=== PATIENT | male | born 1985 | race Caucasian/White ===

== ENCOUNTER 2016-12-24 13:53 | Emergency (ER) | payer SELFPAY | END 2016-12-24 16:16 | disposition left against medical advice (07) | LOC: UCEAST 13:53 | DX: R21 Rash and other nonspecific skin eruption (principal); Z53.21 Procedure and treatment not carried out due to patient leaving prior to being seen by health care provider ==

== ENCOUNTER 2017-01-13 04:14 | Emergency (ER) | payer OTHER ==
[2017-01-13 04:26] VITALS: BP 129/70
--- NOTE | 2017-01-13 06:14 | ED ---
Jl Gagnon Michael, scribed for Robb Montes MD on 01/13/17 at 0451 . Medical Screening - HPI Summary HPI Summary: Pt is at the ED for a legal blood draw. - History of Current Complaint Chief Complaint: EDGeneral Stated Complaint: LEGAL BLOOD DRAW Associated Signs and Symptoms: Negative PMH/Surg Hx/FS Hx/Imm Hx Endocrine/Hematology History: Denies: Hx Diabetes, Hx Thyroid Disease Cardiovascular History: Denies: Hx Hypertension, Hx Pacemaker/ICD Respiratory History: Reports: Hx Asthma - childhood Denies: Hx Chronic Obstructive Pulmonary Disease (COPD) GI History: Denies: Hx Ulcer Sensory History: Denies: Hx Hearing Aid Psychiatric History: Denies: Hx Panic Disorder - Surgical History Surgery Procedure, Year, and Place: Left leg DVT surgically removed 2006 Infectious Disease History: No Infectious Disease History: Denies: Hx Clostridium Difficile, Hx Hepatitis, Hx Human Immunodeficiency Virus (HIV), Hx of Known/Suspected MRSA, Hx Shingles, Hx Tuberculosis, Hx Known/ Suspected VRE, Hx Known/Suspected VRSA, History Other Infectious Disease, Traveled Outside the [place] in Last 30 Days - Social History Occupation: Employed Full-time Lives: With Family Alcohol Use: Occasionally Substance Use Type: Reports: None Substance Use Comment - Amount & Last Used: off suboxone as of 03/2014 Smoking Status (MU): Never Smoked Tobacco Review of Systems Constitutional: Negative Eyes: Negative ENT: Negative Cardiovascular: Negative Respiratory: Negative Gastrointestinal: Negative Genitourinary: Negative Musculoskeletal: Negative Skin: Negative Neurological: Negative Psychological: Normal All Other Systems Reviewed And Are Negative: Yes Physical Exam Triage Information Reviewed: Yes Vital Signs On Initial Exam: Initial Vitals Temp Pulse Resp BP Pulse Ox 98.9 F 91 18 129/70 97 01/13/17 04:20 01/13/17 04:20 01/13/17 04:20 01/13/17 04:20 01/13/17 04:20 Vital Signs Reviewed: Yes Appearance: Positive: Well-Appearing Skin: Positive: Warm ENT: Positive: Hearing grossly normal Respiratory/Lung Sounds: Positive: Breath Sounds Present Neurological: Positive: Alert, Oriented to Person Place, Time Diagnostics - Vital Signs Vital Signs Temp Pulse Resp BP Pulse Ox 01/13/17 04:20 98.9 F 91 18 129/70 97 - Laboratory Lab Statement: Any lab studies that have been ordered have been reviewed, and results considered in the medical decision making process. Course/Dx - Diagnoses Provider Diagnoses: Legal intervention Discharge - Discharge Plan Condition: Good Disposition: HOME [place] [facility]Outside] Additional Instructions: Legal blood draw. Follow up with you [facility]. The documentation as recorded by the Jl moss Michael accurately reflects the service I personally performed and the decisions made by me, Robb Montes MD.
== END 2017-01-13 04:57 | disposition home or self-care (01) ==
LOC: ED 04:14
DX: Z04.9 Encounter for examination and observation for unspecified reason (principal)
CPT/HCPCS: 99281

== ENCOUNTER 2017-11-04 16:37 | Emergency (ER) | payer OTHER ==
[2017-11-04 19:17] VITALS: BP 137/71
--- NOTE | 2017-11-04 19:23 | UC ---
Throat Pain/Nasal Ruddy HPI - HPI Summary HPI Summary: Pt presents with sore throat and body aches since yesterday. He tells me that he has been around friends recently diagnosed with the flu. Has not taken anything OTC for his symptoms. Last night he felt feverish, but did not take his temp. Denies cough, SOB, chest pain, abdominal pain, n/v/d/c. - History of Current Complaint Chief Complaint: UCRespiratory Stated Complaint: SORE THROAT Time Seen by Provider: 11/04/17 19:20 Hx Obtained From: Patient Severity: Mild Pain Intensity: 3 Pain Scale Used: 0-10 Numeric - Allergies/Home Medications Allergies/Adverse Reactions: Allergies Allergy/AdvReac Type Severity Reaction Status Date / Time No Known Allergies Allergy Verified 11/04/17 19:17 PMH/Surg Hx/FS Hx/Imm Hx Previously Healthy: Yes - Surgical History Surgical History: Yes Surgery Procedure, Year, and Place: Left leg DVT surgically removed 2006 - Family History Known Family History: Positive: Unknown - Social History Occupation: Employed Full-time Lives: With Family Alcohol Use: None Substance Use Type: None Substance Use Comment - Amount & Last Used: off suboxone as of 03/2014 Smoking Status (MU): Never Smoked Tobacco - Immunization History Most Recent Tetanus Shot: 2013 Review of Systems Constitutional: Fever, Other - Body aches Skin: Negative Eyes: Negative ENT: Sore Throat Respiratory: Negative Cardiovascular: Negative Gastrointestinal: Negative Musculoskeletal: Negative Neurological: Negative Psychological: Negative All Other Systems Reviewed And Are Negative: Yes Physical Exam Triage Information Reviewed: Yes Appearance: Well-Appearing, No Pain Distress, Well-Nourished Vital Signs: Initial Vital Signs Temp 98.9 F 11/04/17 19:14 Pulse 102 11/04/17 19:14 Resp 16 11/04/17 19:14 BP 137/71 11/04/17 19:14 Pulse Ox 95 11/04/17 19:14 Vital Signs Reviewed: Yes Eyes: Positive: Conjunctiva Clear. Negative: Conjunctiva Inflamed, Discharge ENT: Positive: Hearing grossly normal, Pharynx normal, Pharyngeal erythema, TMs normal, Uvula midline. Negative: Nasal congestion, Nasal drainage, TM bulging, TM dull, TM red, Tonsillar swelling, Tonsillar exudate, Hoarse voice, Sinus tenderness Neck: Positive: Supple, Nontender, Other: - Left anterior lymphadenopathy Respiratory: Positive: Chest non-tender, Lungs clear, Normal breath sounds, No respiratory distress, No accessory muscle use Cardiovascular: Positive: RRR, No Murmur, Pulses Normal Neurological: Positive: Alert. Negative: Fatigued Psychological: Positive: Age Appropriate Behavior Skin: Negative: rashes Throat Pain/Nasal Course/Dx - Course Course Of Treatment: POC flu and strep negative. Given symptoms and recent sick contacts - will treat like the flu. Advised rest and fluids - Differential Dx/Diagnosis Provider Diagnoses: Influenza Discharge - Discharge Plan Condition: Stable Disposition: HOME Prescriptions: Oseltamivir CAP* [Tamiflu CAP*] 75 mg PO BID #10 cap Patient Education Materials: Influenza (DC) Forms: *Work Release Referrals: No Primary Care Phys,NOPCP [Primary Care Provider] - Additional Instructions: If you develop a fever, shortness of breath, chest pain, new or worsening symptoms - please call your PCP or go to the ED.
== END 2017-11-04 20:26 | disposition home or self-care (01) ==
LOC: UCEAST 16:37
DX: J11.1 Influenza due to unidentified influenza virus with other respiratory manifestations (principal); Z86.718 Personal history of other venous thrombosis and embolism
CPT/HCPCS: 87502; 87651; 99212; G0463

== ENCOUNTER 2019-05-12 16:23 | Emergency (ER) | payer MEDICAID, OTHER ==
--- NOTE | 2019-05-12 16:50 | ED ---
Throat Pain/Nasal Congestion - HPI Summary HPI Summary: Patient states decreased hearing in right ear 1 week, with mild ringing. Symptoms described as constant, new onset. Denies trauma, GARIBAY, pain, ear discharge, fever, cough, sore throat, CP, SOB, N/V/D, abdominal pain, change in urine, change in BM. Medical history is none. - History of Current Complaint Chief Complaint: EDEarPain Time Seen by Provider: 05/12/19 16:35 Hx Obtained From: Patient Onset/Duration: Gradual Onset, Lasting Days Associated Signs And Symptoms: Positive: Negative Cough: None - Allergies/Home Medications Allergies/Adverse Reactions: Allergies Allergy/AdvReac Type Severity Reaction Status Date / Time No Known Allergies Allergy Verified 07/17/18 06:26 Home Medications: Home Medications Buprenorp/Nalox 8-2 MG FILM [Suboxone 8 mg-2 mg Sl Film] 1 strip PO DAILY [History Confirmed 05/12/19] Bupropion XL* [Wellbutrin XL *] 150 mg PO DAILY 05/12/19 [History Confirmed ] Gabapentin CAP(*) [Neurontin 400 mg CAP(*)] 800 mg PO TID PRN 05/12/19 [History Confirmed 05/12/19] PMH/Surg Hx/FS Hx/Imm Hx Endocrine/Hematology History: Denies: Hx Diabetes, Hx Thyroid Disease Cardiovascular History: Denies: Hx Hypertension, Hx Pacemaker/ICD Respiratory History: Reports: Hx Asthma - childhood Denies: Hx Chronic Obstructive Pulmonary Disease (COPD) GI History: Denies: Hx Ulcer History: Denies: Hx Dialysis Sensory History: Denies: Hx Legally Blind Opthamlomology History: Denies: Hx Eye Prosthesis EENT History: Denies: Hx Deafness Neurological History: Denies: Hx Dementia Psychiatric History: Denies: Hx Panic Disorder - Surgical History Surgery Procedure, Year, and Place: Left leg DVT surgically removed 2006 Infectious Disease History: No Infectious Disease History: Denies: Hx Clostridium Difficile, Hx Hepatitis, Hx Human Immunodeficiency Virus (HIV), Hx of Known/Suspected MRSA, Hx Shingles, Hx Tuberculosis, Hx Known/ Suspected VRE, Hx Known/Suspected VRSA, History Other Infectious Disease, Traveled Outside the [place] in Last 30 Days - Family History Known Family History: Positive: Unknown - Social History Alcohol Use: None Substance Use Type: Reports: None Substance Use Comment - Amount & Last Used: off suboxone as of 03/2014 Smoking Status (MU): Never Smoked Tobacco Review of Systems Constitutional: Negative Eyes: Negative ENT: Other Cardiovascular: Negative Respiratory: Negative Gastrointestinal: Negative Genitourinary: Negative Musculoskeletal: Negative Skin: Negative Neurological: Negative Psychological: Normal All Other Systems Reviewed And Are Negative: Yes Physical Exam - Summary Physical Exam Summary: Hearing decreased in the right ear versus left ear. ENT physical exam unremarkable. Triage Information Reviewed: Yes Vital Signs On Initial Exam: Initial Vitals Temp Pulse Resp BP Pulse Ox 96.5 F 70 16 126/74 98 05/12/19 16:24 05/12/19 16:24 05/12/19 16:24 05/12/19 16:24 05/12/19 16:24 Vital Signs Reviewed: Yes Appearance: Positive: Well-Appearing Skin: Positive: Warm Head/Face: Positive: Normal Head/Face Inspection Eyes: Positive: Normal ENT: Positive: Normal ENT inspection Neck: Positive: Supple Respiratory/Lung Sounds: Positive: Clear to Auscultation Cardiovascular: Positive: Normal Abdomen Description: Positive: Nontender Musculoskeletal: Positive: Normal Neurological: Positive: Normal Psychiatric: Positive: Normal AVPU Assessment: Alert - Elif Coma Scale Best Eye Response: 4 - Spontaneous Best Motor Response: 6 - Obeys Commands Best Verbal Response: 5 - Oriented Coma Scale Total: 15 Diagnostics - Vital Signs Vital Signs Temp Pulse Resp BP Pulse Ox 05/12/19 16:24 96.5 F 70 16 126/74 98 - Laboratory Lab Statement: Any lab studies that have been ordered have been reviewed, and results considered in the medical decision making process. EENT Course/Dx - Course Course Of Treatment: Patient states decreased hearing in right ear 1 week, with mild ringing. Symptoms described as constant, new onset. Denies trauma, GARIBAY, pain, ear discharge, fever, cough, sore throat, CP, SOB, N/V/D, abdominal pain, change in urine, change in BM. Medical history is none. Vital signs within normal limits. Labs unremarkable. Advised patient follow up with ENT doctor Ry for further evaluation. Patient understands and approves Plan. - Diagnoses Provider Diagnoses: Decreased hearing of right ear Discharge - Sign-Out/Discharge Documenting (check all that apply): Patient Departure Patient Received Moderate/Deep Sedation with Procedure: No - Discharge Plan Condition: Stable Disposition: HOME Patient Education Materials: Hearing Loss (ED) Referrals: No Primary Care Phys,NOPCP [Primary Care Provider] - Timoteo Sanchez MD [Medical Doctor] - Additional Instructions: Follow up with ENT Dr. Sanchez for further evaluation of change in hearing in right ear. - Billing Disposition and Condition Condition: STABLE Disposition: Home
[2019-05-12 16:58] VITALS: BP 0/0
== END 2019-05-12 16:56 | disposition home or self-care (01) ==
LOC: ED 16:23
DX: H91.91 Unspecified hearing loss, right ear (principal); Z79.899 Other long term (current) drug therapy
CPT/HCPCS: 99281